=== PATIENT | female | born 2000 | race Caucasian/White ===

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

== ENCOUNTER 2021-04-15 21:56 | Emergency (ER) | payer MEDICAID, SELFPAY ==
[2021-04-15 22:23] VITALS: BP 131/72; PULSE 81; RESP 16; TEMP 36.9; O2SAT 98; BMI 28.1
[2021-04-15 22:59] LABS: COVID-19 Test Negative (Negative)
== END 2021-04-15 23:08 | disposition left against medical advice (07) ==
PROVIDERS: Emergency Provider Emergency Medicine
DX: R10.11 Right upper quadrant pain (principal); R11.2 Nausea with vomiting, unspecified; Z20.822 Contact with and (suspected) exposure to COVID-19; Z79.899 Other long term (current) drug therapy
CPT/HCPCS: 36415; 87635; 99282; 99283

== ENCOUNTER 2024-06-27 14:05 | Inpatient (IN) | payer OTHER, SELFPAY ==
[2024-06-27 14:09] VITALS: BP 119/96; PULSE 84; RESP 18; TEMP 36.6; O2SAT 98; BMI 23.1
--- NOTE | 2024-06-27 14:10 | ED_ITS ---
HPI - Psych General Chief Complaint: Psychiatric Symptoms Stated Complaint: crisis Time Seen by Provider: 06/27/24 16:35 Source: patient, RN notes reviewed and old records reviewed Mode of arrival: ambulatory Limitations: no limitations History of Present Illness ED Provider: Sho CAMARENA Narrative: 23-year-old biologic female who identifies with keys/him pronouns presents for evaluation of depression with suicidal thoughts. Patient reports that he has had suicidal thoughts for most of his life. He is not on any antidepressants or antianxiety medications. He does not have a plan to harm himself but in the past has self-harm through cutting Denies any fevers, chills, pain, or other somatic complaints. Related Data Home Medications ?Medication ?Instructions ?Recorded ?Confirmed No Known Home Meds 06/27/24 06/27/24 Allergies Allergy/AdvReac Type Severity Reaction Status Date / Time No Known Allergies Allergy Verified 06/27/24 14:10 Review of Systems 2 Constitutional: Constitutional: Denies body ache(s), Denies chills, Denies fever(s), Denies frequent falls and Denies headache(s) Eyes: Eyes: Denies blurry vision ENT: Denies headache(s) Cardiovascular: Cardiovascular: Denies chest pain and Denies dyspnea Respiratory: Respiratory: Denies cough and Denies dyspnea Gastrointestinal: Gastrointestinal: Denies abdominal pain Musculoskeletal: Musculoskeletal: Denies back pain Neurologic: Denies frequent falls and Denies headache(s) Psychiatric: Psychiatric: Reports depression, Denies auditory hallucinations, Denies visual hallucinations and Reports suicidal ideation PMFSH Past Medical History Medical History Anxiety Social History Social History Smoked in Last 30 Days: No Use of substances other than those prescribed or required for medical reasons: Yes Substance Use Type: Marijuana Substance Use Frequency: Daily Advance Directives: No Advance Directives Information Provided: No Do you have a plan to hurt others: No Plan Physical Exam 2 Vital Signs: Vital Signs: Last Vital Signs Temp 97.4 F 06/28/24 06:23 Pulse 74 06/28/24 06:23 Resp 18 06/28/24 06:23 BP 110/55 L 06/28/24 06:23 Pulse Ox 97 06/28/24 06:23 O2 Del Method Room Air 06/28/24 06:23 BMI result Body Mass Index 23.1 Const: General: healthy appearing, comfortable, no acute distress, alert and awake Nutritional Appearance: well nourished Orientation/consciousness: p atient oriented x3 HEENT: Head: Yes normocephalic and Yes atraumatic Eyes: Eyelids: Yes eyelids normal Conjunctivae: conjunctivae normal S clerae: sclerae normal Corneas: corneas normal Pupils: Equal, round and reactive pupils present EOM: EOMs intact bilaterally Neck: Neck: Yes full ROM Resp: Effort & Inspection: normal respiratory effort, able to speak in complete sentences and not labored Skin: General skin exam: elasticity normal Neuro: General: patient oriented x3 Cranial nerves: Yes Equal, round and reactive pupils present and Yes Bilaterally intact EOM present Cognition (Neuro): normal cognition Course Course Course Narrative: 23 yo patient with PMH of depression here with SI and depression no injuries, illness, overdose, brought in by partner. At this time labs, CARE team consult. Has no medical concerns. this is a RAPID medical screening exam the rest of the history and physical exam is to be done by the main provider. Reevaluation(s) Reevaluation #1: CBC unremarkable. Chemistry with no acute electrolyte abnormalities needing intervention. Mild bump in triage hold or bilirubin not complaining of abdominal pain. Here in negative no infection. Urine negative. Urine toxicology positive for marijuana. Negative ethanol. Physician observation continued. Uneventful night. Vital signs stable. No complaints from nursing overnight. Med reconciliation reviewed and done. Pending disposition. Will continue to monitor. Time: 08:11 Medications Administered Generic Name Dose Route Start Last Admin Trade Name Freq PRN Reason Stop Dose Admin Nicotine Polacrilex 4 mg 06/27/24 22:49 06/27/24 22:57 Nicotine Polacrilex 2 Mg Gum BUCCAL 4 mg QID PRN Administration Nicotine Cravings Discontinued Medications Generic Name Dose Route Start Last Admin Trade Name Freq PRN Reason Stop Dose Admin Acetaminophen 650 mg 06/27/24 22:06 06/27/24 22:09 Acetaminophen 325 Mg Tablet PO 06/27/24 22:07 650 mg ONCE ONE Administration Diphenhydramine HCl 50 mg 06/27/24 23:06 06/27/24 23:09 Diphenhydramine Hcl 25 Mg Capsule PO 06/27/24 23:07 50 mg ONCE ONE Administration Nicotine Polacrilex 4 mg 06/27/24 22:45 06/27/24 22:47 Nicotine Polacrilex Lozenge 4 Mg Lozenge BUCCAL 06/27/24 22:46 Not Given ONCE ONE Ondansetron HCl 4 mg 06/27/24 15:42 06/27/24 15:59 Ondansetron Odt 4 Mg Tab.Rapdis TRANSLINGU 06/27/24 15:43 4 mg ONCE ONE Administration Medical Decision Making Medical Decision Making [facility] Narrative: 23-year-old female to male patient presents for evaluation of depression with suicidal thoughts. The patient has no somatic complaints, labs are reassuring, vital signs are stable. He is medically cleared for care team disposition. He has already been seen by the care team and was deemed to require inpatient level of care for stabilization of mental illness. Differential Diagnosis Differential Diagnoses: The differential diagnosis associated with the presentation includes Depression Suicidal ideation Bipolar disorder Substance abuse Lab Data [facility] Lab Attestation statement: I reviewed the patient's lab results. Leukocytosis or significant anemia. Normal platelet count. No significant electrolyte abnormalities warranting intervention 06/27/24 14:36 06/27/24 14:36 Labs: Lab Results 06/27/24 06/27/24 06/27/24 Range/Units 14:36 15:00 22:12 WBC 6.3 (4.8-10.8) X10*3/uL RBC 4.36 (4.20-5.50) X10*6/uL Hgb 12.1 (12.0-16.0) g/dl Hct 36.0 L (37.0-47.0) % MCV 82.6 (80.0-98.0) fL MCH 27.8 (27.0-33.0) pg MCHC 33.6 (31.0-35.0) g/dl RDW 19.1 H (11.0-16.0) % Plt Count 198 (160-400) X10*3/uL MPV 9.3 L (9.4-12.3) fL Immature Gran % (Auto) 0.2 (0.0-0.4) % Neut % (Auto) 56.7 (45-73) % Lymph % (Auto) 30.8 (20-40) % [place] % (Auto) 9.9 (2-11) % Eos % (Auto) 1.4 (0-4) % Baso % (Auto) 1.0 (0-2) % Lymph # (Auto) 1.9 (1.2-4.9) X10*3/uL [place] # (Auto) 0.6 (0.1-1.2) X10*3/uL Eos # (Auto) 0.1 (0.0-0.4) X10*3/uL Baso # (Auto) 0.1 (0.0-0.2) X10*3/uL Abs Immat Gran (auto) 0.01 (0.00-0.03) X10*3/uL Absolute Neuts (auto) 3.6 (2.0-8.3) x10*3/uL Absolute Nucleated RBC 0.000 (0.0-0.012) X10*3/uL Nucleated RBC % (auto) 0.0 (0.0-0.2) /100WBC Sodium 139 (135-145) mmol/L Potassium 3.8 (3.3-5.1) mmol/L Chloride 110 H (96-108) mmol/L Carbon Dioxide 22 (22-29) mmol/L Anion Gap 11 L (12-20) BUN 9 (9-16) mg/dL Creatinine 0.73 (0.5-1.4) mg/dL Estim Creat Clear Calc 113.1 Estimated GFR > 60 Random Glucose 98 (60-115) mg/dL Calcium 9.5 (8.4-10.2) mg/dL Magnesium 1.9 (1.6-2.6) mg/dL Total Bilirubin 1.2 H (0.0-1.0) mg/dL Direct Bilirubin 0.3 (0.0-0.5) mg/dL AST 20 (5-31) U/L ALT 15 (0-31) U/L Alkaline Phosphatase 59 (39-117) U/L Total Protein 7.8 (6.5-8.0) g/dL Albumin 4.7 (3.5-5.0) g/dL Urine Color Yellow Urine Appearance Clear Urine pH 6.5 (5.0-9.0) Ur Specific [place] 1.015 (1.005-1.025) Urine Protein Negative (Neg-Trace) mg/dL Urine Glucose (UA) Negative (Negative) mg/dL Urine Ketones Trace (Negative) mg/dL Urine Blood Negative (Negative) Urine Nitrite Negative (Negative) Ur Leukocyte Esterase Negative (Negative) Urine Test NEGATIVE (NEGATIVE) Urine Opiates Screen Not Detected (Not Detect) Ur Buprenorphine Scrn Not Detected (Not Detect) ng/mL Ur Oxycodone Screen Not Detected (Not Detect) ng/mL Urine Methadone Screen Not Detected (Not Detect) ng/mL Urine Fentanyl Screen Not Detected (Not Detect) Ur Barbiturates Screen Not Detected (Not Detect) Ur Phencyclidine Scrn Not Detected (Not Detect) Ur Amphetamines Screen Not Detected (Not Detect) U Benzodiazepines Scrn Not Detected (Not Detect) Urine Cocaine Screen Not Detected (Not Detect) U Marijuana (THC) Screen POSITIVE H (Not Detect) Ethyl Alcohol < 10 mg/dL Influenza Type A (PCR) NEGATIVE (Negative) Influenza Type B (PCR) NEGATIVE (Negative) RSV RNA Qual (PCR) NEGATIVE (Negative) SARS-CoV-2 RNA (RT-PCR) NEGATIVE (Negative) Discharge Plan Discharge Clinical Impression: Suicidal ideation Patient Disposition: Still a Patient Prescriptions: No Action No Known Home Meds Interventions: Archer-Suicide Risk Severity Scale Last Done: 06/27/24 14:40 Print Language: Nigerien
[2024-06-27 14:42] LABS: MANUAL DIFF FLAG NO
[2024-06-27 14:44] LABS: Basophils Absolute Auto 0.1 X10*3/uL (0.0-0.2); Eosinophils Absolute Auto 0.1 X10*3/uL (0.0-0.4); Eosinophils Percent Auto 1.4 % (0-4); Hemoglobin 12.1 g/dl (12.0-16.0); Imm Gran Abs Auto 0.01 X10*3/uL (0.00-0.03); Imm Gran Pct Auto 0.2 % (0.0-0.4); Lymphocytes Absolute Auto 1.9 X10*3/uL (1.2-4.9); Lymphocytes Percent Auto 30.8 % (20-40); Mean Corpuscular HGB Conc 33.6 g/dl (31.0-35.0); Mean Corpuscular Hemoglobin 27.8 pg (27.0-33.0); Mean Corpuscular Volume 82.6 fL (80.0-98.0); Mean Platelet Volume 9.3 fL (9.4-12.3); Monocytes Absolute Auto 0.6 X10*3/uL (0.1-1.2); Monocytes Percent Auto 9.9 % (2-11); Neutrophils Absolute Auto 3.6 x10*3/uL (2.0-8.3); Neutrophils Percent Auto 56.7 % (45-73); Platelet Count 198 X10*3/uL (160-400); Red Blood Count 4.36 X10*6/uL (4.20-5.50); Red Cell Distribution Width 19.1 % (11.0-16.0); White Blood Count 6.3 X10*3/uL (4.8-10.8)
[2024-06-27 15:00] LABS: Alanine Aminotransferase 15 U/L (0-31); Albumin Level 4.7 g/dL (3.5-5.0); Alkaline Phosphatase 59 U/L (39-117); Anion Gap 11 (12-20); Aspartate Amino Transferase 20 U/L (5-31); Bilirubin Direct 0.3 mg/dL (0.0-0.5); Bilirubin Total 1.2 mg/dL (0.0-1.0); Blood Urea Nitrogen 9 mg/dL (9-16); Calcium 9.5 mg/dL (8.4-10.2); Carbon Dioxide 22 mmol/L (22-29); Chloride 110 mmol/L (96-108); Creatinine Clr Calc Pharmacy 113.1; Estimated Glomerular Filt Rate > 60; Ethanol < 10 mg/dL; Glucose Random 98 mg/dL (60-115); Magnesium 1.9 mg/dL (1.6-2.6); Potassium 3.8 mmol/L (3.3-5.1); Sodium 139 mmol/L (135-145); Total Protein 7.8 g/dL (6.5-8.0)
[2024-06-27 15:07] LABS: Appearance Urine Clear; Color Urine Yellow; Glucose Urine UA Negative (Negative); Leukocyte Esterase Urine Negative (Negative); Nitrite Urine Negative (Negative); PH 6.5 (5.0-9.0); Specific Gravity - Urine 1.015 (1.005-1.025); Urine Blood Negative (Negative); Urine Ketones Trace mg/dL (Negative); Urine Protein Negative (Neg-Trace)
[2024-06-27 15:16] LABS: Amphetamine Screen Urine Not Detected (Not Detect); Barbiturates, Urine Not Detected (Not Detect); Benzodiazepines Screen Urine Not Detected (Not Detect); Buprenorphine Scr Not Detected (Not Detect); Cannabinoid Screen Urine POSITIVE (Not Detect); Cocaine Screen Urine Not Detected (Not Detect); Fentanyl, urine Not Detected (Not Detect); Methadone Screen, Urine Not Detected (Not Detect); Opiate Screen Urine Not Detected (Not Detect); Oxycodone Screen Urine Not Detected (Not Detect); Phencyclidine Screen Urine Not Detected (Not Detect)
--- NOTE | 2024-06-27 15:31 | PC.NURSE ---
pt is reporting having nausea, aware
--- NOTE | 2024-06-27 15:44 | PC.NURSE ---
care team speaking with patient
[2024-06-27 15:52] LABS: UPreg QC Valid YES; Urine Pregnancy NEGATIVE (NEGATIVE)
[2024-06-27] MEDS: Ondansetron ODT 4 MG TAB.RAPDIS TRANSLINGU (15:59)
--- NOTE | 2024-06-27 17:17 | MHC.CARE ---
T/W spoke to financial counseling to assist patient with health insurance. The patient will be an [facility] bedsearch.
[2024-06-27 21:30] VITALS: BP 117/64; PULSE 65; RESP 18; TEMP 36.6; O2SAT 99
[2024-06-27] MEDS: Acetaminophen 325 MG TABLET 650 MG PO (22:09)
--- NOTE | 2024-06-27 22:11 | PC.NURSE ---
patient using phone very consistently. patient c/o back pain, feels flush, given apap 650mg and testing client for covid/rsv/flu
[2024-06-27] MEDS: Nicotine Polacrilex 2 MG GUM 4 MG BUCCAL (22:57)
[2024-06-27 23:01] LABS: Influenza A PCR NEGATIVE (Negative); Influenza B PCR NEGATIVE (Negative); Resp Syncy Virus RNA Qual PCR NEGATIVE (Negative); SARS COV2 PCR INHOUSE NEGATIVE (Negative)
[2024-06-27] MEDS: diphenhydrAMINE HCL 25 MG CAPSULE 50 MG PO (23:09)
--- NOTE | 2024-06-28 04:26 | PC.NURSE ---
resumed care of pt at 0300 - pt continues to appear asleep in no apparent distress. respirations even/unlabored. pt remains inpatient bed search at this time. plan of care ongoing.
[2024-06-28 06:23] VITALS: BP 110/55; PULSE 74; RESP 18; TEMP 36.3; O2SAT 97
--- NOTE | 2024-06-28 07:12 | PC.NURSE ---
Assumed care of patient at 0645, patient appears to be sleeping, respirations even and unlabored, no apparent distress noted. Continue plan of care for inpatient bedsearch
[2024-06-28] MEDS: Nicotine Polacrilex 2 MG GUM 4 MG BUCCAL ×3 (14:13→20:53)
[2024-06-28] MEDS: Milk of Magnesia 30 ML ORAL.SUSP PO (17:01)
[2024-06-28] MEDS: hydrOXYzine HCL 25 MG TABLET PO (17:01)
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
[2024-06-28 19:50] VITALS: BP 116/64; PULSE 84; RESP 20; TEMP 36.4; O2SAT 100
[2024-06-28 20:00] VITALS: BP 114/61; PULSE 87; TEMP 37.1; O2SAT 98
[2024-06-28] MEDS: Flu Vacc TS2024-25(6mos up)/PF 0.5 ML SYRINGE IM (20:48)
[2024-06-28] MEDS: traZODone HCL 50 MG TABLET PO (20:53)
[2024-06-29] MEDS: OLANZapine 2.5 MG TABLET PO ×3 (02:23→16:41)
[2024-06-29] MEDS: traZODone HCL 50 MG TABLET PO ×2 (02:24→22:43)
[2024-06-29] MEDS: Acetaminophen 325 MG TABLET 650 MG PO (02:56)
[2024-06-29 08:37] VITALS: BP 103/66; PULSE 83; RESP 16; TEMP 36.4; O2SAT 98
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
[2024-06-29 09:24] LABS: Estimated Average Glucose 88 mg/dL; Hemoglobin A1C 85.2324 umol/L; Hemoglobin A1c % 4.7 % (<6.0); Total Hemoglobin (HGBA1C) 3092.0046 umol/L
[2024-06-29 09:37] LABS: Cholesterol 126 mg/dL (<200); HDL Cholesterol 41 mg/dL (>40); LDL Cholesterol Calculated 74 mg/dL (<100); Triglycerides 56 mg/dL (<150)
[2024-06-29] MEDS: hydrOXYzine HCL 25 MG TABLET PO ×2 (13:34→20:01)
[2024-06-29] MEDS: Nicotine Polacrilex 2 MG GUM 4 MG BUCCAL ×3 (14:16→21:12)
[2024-06-29 20:00] VITALS: BP 115/73; PULSE 96; TEMP 36.3; O2SAT 99
[2024-06-29] MEDS: OLANZapine 5 MG TABLET PO (20:01)
[2024-06-30 08:55] VITALS: BP 124/62; PULSE 58; RESP 16; TEMP 36.3; O2SAT 99
[2024-06-30] MEDS: Nicotine Polacrilex 2 MG GUM 4 MG BUCCAL ×5 (08:56→21:26)
[2024-06-30] MEDS: Sertraline HCL 25 MG TABLET PO (08:56)
[2024-06-30] MEDS: hydrOXYzine HCL 25 MG TABLET PO ×2 (08:56→17:44)
--- NOTE | 2024-06-30 10:14 | HO.PSYCHPN ---
Subjective Subjective Date of Service: 06/30/24 Reason For Visit: Depression/SI Subjective Notes: Conditional Voluntary Healthcare Proxy: No Guardianship: No Medical Problems Affecting Mental Status: No Interim History: 23 yo feels medication helpful -- slept with olanzapine 5mg and trazodone 50mg was needed as well - still feels irritable when another patient was trying to say they shouldn't be on phone felt self getting reactive- and angry- Medication Compliance: Yes Side effects from medications: No Attending Groups: Yes Review of Systems Acute medical concerns: No would like to go back on TEstosterone while here Medical Review of Systems: unchanged Mental Status Exam Mental Status Exam Patient Appearance: Appropriate Patient Orientation: Person, Place, Time and Situation Level of Consciousness: Awake Patient Behavior: Appropriate, Cooperative and Good Eye Contact Mood Description: Calm and Anxious Affect Description: Appropriate Patient Cognition Impaired: No Ability to Follow Directions: Good Speech Pattern: Clear Hallucinations: None Delusions: Not Present Depressive Symptoms: Increased Irritability Judgement: Fair Diagnostics Vital Signs (24Hr): Vital Signs - 24 hr 06/29/24 20:00 06/30/24 08:55 Temperature 97.3 F 97.3 F Pulse Rate 96 58 Respiratory Rate 16 Blood Pressure 115/73 124/62 Pulse Oximetry 99 99 Oxygen Delivery Method Room Air Room Air BMI result Body Mass Index 23.1 Labs 06/27/24 14:36 06/27/24 14:36 Labs: Laboratory Results - last 48 hr 06/29/24 08:40 Estimat Average Glucose 88 Hemoglobin A1c % 4.7 Triglycerides 56 Cholesterol 126 LDL Cholesterol, Calc 74 HDL Cholesterol 41 TSH 1.90 Medications Medications Current Medications Acetaminophen (Acetaminophen 325 Mg Tablet) 650 mg PO Q6H PRN PRN Reason: Headache/Pain Mild Scale (1-3) Last Admin: 06/29/24 02:56 Dose: 650 mg Al Hydroxide/Mg Hydroxide (Magnesium Hydrox/Alum Hydrox 30 Ml Oral.Susp) 30 ml PO Q6H PRN PRN Reason: Heartburn/Nausea Hydroxyzine HCl (Hydroxyzine Hcl 25 Mg Tablet) 25 mg PO Q6H PRN PRN Reason: Anxiety Last Admin: 06/30/24 08:56 Dose: 25 mg Magnesium Hydroxide (Milk Of Magnesia 30 Ml Oral.Susp) 30 ml PO DAILY PRN PRN Reason: Constipation Last Admin: 06/28/24 17:01 Dose: 30 ml Nicotine (Nicotine 21 Mg Patch.Td24) 21 mg TRANSDERMA DAILY PRN PRN Reason: smoking cessation Nicotine Polacrilex (Nicotine Polacrilex 2 Mg Gum) 4 mg BUCCAL QID PRN PRN Reason: Nicotine Cravings Last Admin: 06/30/24 08:56 Dose: 4 mg Nicotine Polacrilex (Nicotine Polacrilex 2 Mg Gum) 4 mg BUCCAL Q2H PRN PRN Reason: Nicotine Cravings Last Admin: 06/29/24 19:04 Dose: 4 mg Olanzapine (Olanzapine 2.5 Mg Tablet) 2.5 mg PO TID PRN PRN Reason: agitation Last Admin: 06/29/24 16:41 Dose: 2.5 mg Olanzapine (Olanzapine 5 Mg Tablet) 5 mg PO BEDTIME TRACY Last Admin: 06/29/24 20:01 Dose: 5 mg Sertraline HCl (Sertraline Hcl 25 Mg Tablet) 25 mg PO DAILY TRACY Last Admin: 06/30/24 08:56 Dose: 25 mg Trazodone HCl (Trazodone Hcl 50 Mg Tablet) 50 mg PO BEDTIME MRX1 PRN PRN Reason: Insomnia Last Admin: 06/29/24 22:43 Dose: 50 mg Allergies Allergies Allergy/AdvReac Type Severity Reaction Status Date / Time No Known Allergies Allergy Verified 06/27/24 14:10 Assessment & Plan Assessment & Plan (1) Suicidal ideation: Status: Acute Code(s): R45.851 - Suicidal ideations (2) Post traumatic stress disorder: Status: Acute Code(s): F43.10 - Post-traumatic stress disorder, unspecified (3) Affective disorder: Status: Acute Code(s): F39 - Unspecified mood [affective] disorder (4) Cannabis abuse: Status: Acute Code(s): F12.10 - Cannabis abuse, uncomplicated Plan 06/29/24 - discussed trial of sertraline in am and olanzapine at night- since it has been helpful to patient- descirbed most of situation might be ptsd and hx of trauma- growing up =- 06/30/24- continue current meds, will have to discuss ? testosterone and insurance issues with weekday team Patient educated on: diagnosis (ptsd and olanzapine not first line but also can treat irritability), medication risk/benefits and therapeutic strategies Informed Consent: understands and further education needed Reason for continued inpatient stay Substantial Risk for: rapid decompensation Time Spent With Patient Time: Total time managing care of this patient today ____ minutes.
[2024-06-30] MEDS: OLANZapine 2.5 MG TABLET PO ×2 (10:33→19:09)
--- NOTE | 2024-06-30 11:39 | PC.NURSE ---
Pt's testosterone verified with [facility] pharmacy. Last picked up 08/2022. Pt wanting to start back on testosterone.
[2024-06-30 19:43] VITALS: BP 139/88; PULSE 106; TEMP 36.9; O2SAT 98
[2024-06-30] MEDS: OLANZapine 5 MG TABLET PO (22:01)
[2024-06-30] MEDS: traZODone HCL 50 MG TABLET PO ×2 (22:01→23:03)
[2024-07-01 08:00] VITALS: BP 102/52; PULSE 56; TEMP 36.5; O2SAT 98
[2024-07-01] MEDS: Sertraline HCL 25 MG TABLET PO (08:40)
[2024-07-01] MEDS: Nicotine Polacrilex 2 MG GUM 4 MG BUCCAL ×4 (08:41→21:51)
[2024-07-01] MEDS: Acetaminophen 325 MG TABLET 650 MG PO (08:49)
[2024-07-01] MEDS: hydrOXYzine HCL 25 MG TABLET PO (08:50)
[2024-07-01] MEDS: OLANZapine 2.5 MG TABLET PO ×2 (12:46→19:23)
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
[2024-07-01 15:03] VITALS: BP 127/75
[2024-07-01] MEDS: cloNIDine HCL 0.1 MG TABLET PO ×2 (15:03→20:48)
[2024-07-01 15:55] LABS: IDNOW Serial# 08D9AD1C; Strep A Nucleic Acid Negative (Negative)
[2024-07-01 20:00] VITALS: BP 148/72; PULSE 76; TEMP 36.5; O2SAT 98
[2024-07-01] MEDS: traZODone HCL 100 MG TABLET PO (20:54)
[2024-07-02 08:00] VITALS: BP 114/76; PULSE 55; RESP 18; TEMP 36.6; O2SAT 99
[2024-07-02] MEDS: OLANZapine 2.5 MG TABLET PO ×2 (08:44→19:22)
[2024-07-02] MEDS: Nicotine Polacrilex 2 MG GUM 4 MG BUCCAL ×3 (09:20→18:56)
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
[2024-07-02 14:09] VITALS: BP 121/68
[2024-07-02] MEDS: cloNIDine HCL 0.1 MG TABLET PO ×2 (14:09→21:32)
[2024-07-02] MEDS: Sertraline HCL 50 MG TABLET PO (15:55)
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
[2024-07-02 19:34] VITALS: BP 102/50; PULSE 67; RESP 16; TEMP 36.1; O2SAT 99
[2024-07-02] MEDS: traZODone HCL 100 MG TABLET PO (21:32)
[2024-07-03] MEDS: traZODone HCL 100 MG TABLET PO (02:46)
[2024-07-03] MEDS: OLANZapine 2.5 MG TABLET PO (05:52)
[2024-07-03 08:00] VITALS: BP 119/57; PULSE 58; RESP 16; TEMP 36.4; O2SAT 99
[2024-07-03] MEDS: Sertraline HCL 25 MG TABLET 75 MG PO (08:32)
[2024-07-03] MEDS: Nicotine Polacrilex 2 MG GUM 4 MG BUCCAL (10:03)
== END 2024-07-03 10:48 | disposition home or self-care (01) | DRG 755 ==
LOC: HO.ED 06-28 12:35 → HO.PM5 06-28 13:40
PROVIDERS: Emergency Medicine; Physician Assistant; Admitting Provider Psychiatry & Neurology Psychiatry; Emergency Provider Emergency Medicine; Visit Provider Psychiatry & Neurology Psychiatry
DX: F43.12 Post-traumatic stress disorder, chronic (principal); R45.851 Suicidal ideations; F12.10 Cannabis abuse, uncomplicated; F17.210 Nicotine dependence, cigarettes, uncomplicated; Z20.822 Contact with and (suspected) exposure to COVID-19; Z59.02 Unsheltered homelessness; Z71.6 Tobacco abuse counseling; Z23 Encounter for immunization; Z79.899 Other long term (current) drug therapy
CPT/HCPCS: 0241U; 36415; 80048; 80061; 80076; 80307; 81003; 81025; 83036; 83735; 84443; 85025; 87651; 90656; 99285

== ENCOUNTER → 2024-06-28 13:39 | Outpatient (BNV) | payer OTHER, SELFPAY | PROVIDERS: Admitting Provider Psychiatry & Neurology Psychiatry; Emergency Provider Emergency Medicine; Visit Provider Psychiatry & Neurology Psychiatry | DX: F39 Unspecified mood [affective] disorder (principal); F43.11 Post-traumatic stress disorder, acute; R45.851 Suicidal ideations; F12.10 Cannabis abuse, uncomplicated; Z59.00 Homelessness unspecified | CPT/HCPCS: 99231; 99232 ==